=== PATIENT | male | born 1975 | race Caucasian/White ===

== ENCOUNTER 2022-06-14 00:52 | Emergency (ER) | payer SELFPAY ==
[2022-06-14] MEDS ORDERED: Lidocaine 1% 10 ML MDV INJECT ONE (00:56)
[2022-06-14] MEDS ORDERED: Diphtheria,Pertussis(Acell),Tetanus Vaccine 0.5 ML Syringe IM ONE (01:20)
== END 2022-06-14 01:31 | disposition home or self-care (01) ==
LOC: VM.ED 00:52
DX: S81.812A Laceration without foreign body, left lower leg, initial encounter (principal); Z23 Encounter for immunization; W22.8XXA Striking against or struck by other objects, initial encounter
CPT/HCPCS: 12002; 90471; 90715; 99282-25; 99283